=== PATIENT | female | born 1975 | race Two or more races ===

== ENCOUNTER 2020-08-14 14:33 | Outpatient (CLI) | payer OTHER | END 2020-08-14 14:36 | disposition home or self-care (01) | LOC: MAMO-SONO 14:33 | DX: N64.4 Mastodynia (principal) ==

== ENCOUNTER 2020-09-05 10:01 | Outpatient (CLI) | payer OTHER | END 2020-09-05 10:17 | disposition home or self-care (01) | LOC: RX STUDY 10:01 | DX: N84.0 Polyp of corpus uteri (principal); R10.2 Pelvic and perineal pain ==

== ENCOUNTER 2024-12-13 10:35 | Outpatient (CLI) | payer OTHER | END 2024-12-13 10:40 | disposition home or self-care (01) | LOC: RAD 10:35 | PROVIDERS: ATTEND Physical Medicine & Rehabilitation | DX: M25.571 Pain in right ankle and joints of right foot (principal) ==